=== PATIENT | female | born 1985 | race African-American/Black ===

== ENCOUNTER 2025-02-17 00:06 | Emergency (ER) | payer MEDICAID ==
[~2025-02-17] VITALS: Ht 149.9 cm; Wt 46.4 kg
[2025-02-17 00:08] VITALS: BP 125/77; PULSE 70; RESP 18; TEMP 98.7; O2SAT 98
--- NOTE | 2025-02-17 02:17 | ED.PDOC ---
PROCESS LEAD HPI Comments Pt c/o abscess to right labia x3 days. Pt says she has hx of Bartholin cyst to right labia approx 1 year ago and had it drained. Pt has been doing sitz baths and warm compresses for pain without relief. Rates current pain 10/10. Denies any current drainage or fevers. Chief Complaint: Abscess Time Seen by MD: 00:20 Reviewed Notes: Nurses Notes, Medications, Allergies Allergies: Coded Allergies: NO KNOWN ALLERGIES (Unverified , 02/17/25) Information Source: Patient Physical Exam General Appearance: No Apparent Distress, Normal HEENT: Pharynx Normal Neck: Full Range of Motion, Non-Tender Respiratory: Lungs Clear, No Respiratory Distress, Normal Breath Sounds Cardiovascular: No Murmur, Normal Peripheral Pulses, Regular Rate/Rhythm Breast Exam: Deferred Gastrointestinal: No Organomegaly, Non Tender, No Pulsatile Mass, Normal Bowel Sounds, Soft Genitalia: Deferred Pelvic: Deferred Rectal: Deferred Extremities: Normal capillary refill, Normal range of motion, No pedal edema Musculoskeletal : Apperance: Normal Neurologic: Alert, No Motor Deficits, Normal Affect, Normal Mood, No Sensory Deficits Cerebellar Function: Normal Reflexes: NOT DONE Skin: Dry, Normal Color, Warm Lymphatic: No Adenopathy Was a procedure done? Was a procedure done?: No Differential Diagnosis (FILM MAKER) Vaginal Bleeding: UTI Mass / Lesion: Bartholin Abscess, Bartholin Cyst, Perianal Abscess, Subcutaneous Abscess Vaginal Discharge: UTI X-Ray, Labs, Meds, VS Vital Signs Date Time Temp Pulse Resp B/P (MAP) Pulse Ox O2 Delivery O2 Flow Rate FiO2 02/17/25 00:08 98.7 70 18 125/77 98 98.7 Time of 1ST Reevaluation: 00:20 Reevaluation 1ST: Unchanged Reevaluation 2ND: Improved Patient Education/Counseling: Diagnosis, Treatment, Prognosis, Need For Follow Up Family Education/Counseling: No Family Present Departure 1 Departure Disposition: 01 HOME / SELF CARE / HOMELESS Condition: Stable Discharged With: Self Critical Care Note Critical Care Time?: No Stability Stability form required: ROQUE Clarke Feb 17, 2025 02:17
== END 2025-02-18 02:18 | disposition home or self-care (01) ==
LOC: ER 00:12
DX: N76.4 Abscess of vulva (principal); Z53.21 Procedure and treatment not carried out due to patient leaving prior to being seen by health care provider